=== PATIENT | female | born 1980 | race African-American/Black ===

== ENCOUNTER 2017-08-10 02:31 | Emergency (ER) | payer SELFPAY ==
[~2017-08-10] VITALS: Ht 170.2 cm; Wt 73.0 kg
[2017-08-10] MEDS ORDERED: BACITRACIN ZINC OINT UDPKT TOP ONE ×2 (04:30→05:00)
[2017-08-10] MEDS ORDERED: LIDOCAINE HCL 1% 20ML VIAL (Pyxis) INJ MC ONE (04:30)
[2017-08-10 07:30] VITALS: BP 127/67
== END 2017-08-10 08:20 | disposition home or self-care (01) ==
LOC: ER 02:31
DX: S81.011A Laceration without foreign body, right knee, initial encounter (principal); S09.8XXA Other specified injuries of head, initial encounter; F10.10 Alcohol abuse, uncomplicated; Y90.9 Presence of alcohol in blood, level not specified; F17.200 Nicotine dependence, unspecified, uncomplicated; F12.10 Cannabis abuse, uncomplicated; V89.1XXA Person injured in unspecified nonmotor-vehicle accident, nontraffic, initial encounter; Y93.89 Activity, other specified; Y92.488 Other paved roadways as the place of occurrence of the external cause
CPT/HCPCS: 12002; 70450; 70486; 71045; 72170; 73562; 81025; 99284; J3490; Z7610